=== PATIENT | male | born 1955 | race Caucasian/White ===

== ENCOUNTER 2018-03-18 15:37 | Emergency (ER) | payer MEDICARE ==
[~2018-03-18] VITALS: Ht 162.6 cm; Wt 59.8 kg
[~2018-03-18 15:37] MED LIST: AMLO5TAB16 PO; ATOR-2 PO; CHOL400T32 PO; CLON-527 PO; CLON-529 PO; FAMO-128 PO; IMI20NS NS; LACT10SO PO; LYR25C PO; MECL12.5 PO; NORT25CA5 PO; ONDA4TAB6 PO; PHE12.5T PO; RAME8TAB15 PO
[2018-03-18] MEDS ORDERED: HYDROcodone/acetaminophen 10/325mg tab PO ONE (16:50)
[2018-03-18] MEDS ORDERED: AMOX-580 PO (17:43)
[2018-03-18] MEDS ORDERED: MORP-64 PO (17:43)
[2018-03-18] MEDS ORDERED: morphine 4 MG/ML inj SYRINge IM ONE (17:45)
[2018-03-18] MEDS ORDERED: CIPR-259 PO (18:02)
[2018-03-18 18:11] VITALS: BP 125/89
== END 2018-03-18 18:12 | disposition home or self-care (01) ==
LOC: ER 15:37
DX: T85.79XA Infection and inflammatory reaction due to other internal prosthetic devices, implants and grafts, initial encounter (principal); H92.01 Otalgia, right ear; I10 Essential (primary) hypertension; J44.9 Chronic obstructive pulmonary disease, unspecified; G89.29 Other chronic pain; F12.90 Cannabis use, unspecified, uncomplicated; Z88.6 Allergy status to analgesic agent; Z88.8 Allergy status to other drugs, medicaments and biological substances; Z79.2 Long term (current) use of antibiotics; Z79.899 Other long term (current) drug therapy
CPT/HCPCS: 96372; 99284; J2270

== ENCOUNTER 2018-03-26 20:41 | Emergency (ER) | payer MEDICARE ==
[~2018-03-26] VITALS: Ht 162.6 cm; Wt 62.0 kg
[~2018-03-26 20:41] MED LIST changes: +CIPR-259 PO
[2018-03-26 20:54] VITALS: BP 105/79
[2018-03-27] MEDS ORDERED: MORP15TA PO (00:02)
== END 2018-03-27 00:36 | disposition home or self-care (01) ==
LOC: ER 20:42
DX: R51 Headache (principal); I10 Essential (primary) hypertension; J44.9 Chronic obstructive pulmonary disease, unspecified; G89.29 Other chronic pain; F12.90 Cannabis use, unspecified, uncomplicated; Z88.6 Allergy status to analgesic agent; Z88.8 Allergy status to other drugs, medicaments and biological substances; Z79.899 Other long term (current) drug therapy; Z98.890 Other specified postprocedural states
CPT/HCPCS: 99283

== ENCOUNTER 2018-10-19 06:19 | Emergency (ER) | payer MEDICARE ==
[~2018-10-19 06:19] MED LIST changes: -CIPR-259 PO
--- NOTE | 2018-10-19 06:25 | NUR ---
PT CHECKED INTO ER ADMITTING AT 0619 WITH C/O FALL RIB PAIN, WHILE CONTROL ANALYST WAS RECEIVING CHANGE OF SHIFT REPORT. HOME ENERGY RATER INFORMED RN THAT PT WAS STILL WAITING FOR INTAKE AND REQUESTED THAT SHE LET PT KNOW THAT THE RN WOULD BE WITH HIM SHORTLY, AT WHICH TIME IT WAS ANNOUNCED THAT THE PT HAD LEFT AND SAID HE WAS GOING TO GO TO [facility]. SUPERVISOR DATA PROCESSING NOTIFIED, NO FURTHER ACTION WAS REQUESTED BY .
--- NOTE | 2018-10-19 06:25 | NUR ---
Olman perez in EDM - 10/19/18 at 0655 by SHELBIE PT CHECKED INTO ER ADMITTING AT
== END 2018-10-19 06:30 | disposition left against medical advice (07) ==
LOC: ER 06:20
DX: R07.81 Pleurodynia (principal); Z53.21 Procedure and treatment not carried out due to patient leaving prior to being seen by health care provider; W19.XXXA Unspecified fall, initial encounter; Y93.89 Activity, other specified; Y92.89 Other specified places as the place of occurrence of the external cause; Y99.9 Unspecified external cause status

== ENCOUNTER 2018-10-22 21:17 | Emergency (ER) | payer MEDICARE ==
[~2018-10-22] VITALS: Ht 162.6 cm; Wt 67.3 kg
[2018-10-22 21:36] VITALS: BP 140/98
--- NOTE | 2018-10-22 22:36 | NUR ---
PT FELL OUT OF BED AND HIT RIGHT SIDE OF HIS BACK ON GARBAGE CAN 3 DAYS AGO. PT WAS SEEN AT [facility]
[2018-10-22] MEDS ORDERED: LIDOcaine 5% patch TP STA (23:40)
--- NOTE | 2018-10-23 | NUR ---
PT HARD TO AROUSE AT TIMES. SLEEPING ON/OFF.
--- NOTE | 2018-10-23 00:01 | NUR ---
LIDODERM PATCH APPLIED TO RIGHT LOWER BACK
== END 2018-10-23 00:01 | disposition home or self-care (01) ==
LOC: ER 21:18
DX: S30.1XXA Contusion of abdominal wall, initial encounter (principal); R10.9 Unspecified abdominal pain; I10 Essential (primary) hypertension; M54.5 Low back pain; G89.29 Other chronic pain; F12.10 Cannabis abuse, uncomplicated; M25.559 Pain in unspecified hip; J44.9 Chronic obstructive pulmonary disease, unspecified; Z88.6 Allergy status to analgesic agent; Z79.899 Other long term (current) drug therapy; Z88.8 Allergy status to other drugs, medicaments and biological substances; W06.XXXA Fall from bed, initial encounter; Y93.89 Activity, other specified; Y92.89 Other specified places as the place of occurrence of the external cause; Y99.8 Other external cause status
CPT/HCPCS: 99284

== ENCOUNTER 2021-10-10 15:17 | Emergency (ER) | payer MEDICARE ==
[~2021-10-10] VITALS: Ht 162.6 cm; Wt 70.5 kg
[~2021-10-10 15:17] MED LIST changes: +ALBU1.256 NEB; +AMLO-708 PO; -AMLO5TAB16 PO; +ASPI-12 PO; -ATOR-2 PO; +BACL20TA PO; +CALC-336 PO; +CARV3.122 PO; -CLON-527 PO; -CLON-529 PO; -FAMO-128 PO; +FLO0.4C PO; +HYDR-3686 PO; -LACT10SO PO; +LOSA100T57 PO; -LYR25C PO; -MECL12.5 PO; -NORT25CA5 PO; +OMEP20CA16 PO; -ONDA4TAB6 PO; +OXYC10TA47 PO; -PHE12.5T PO; -RAME8TAB15 PO
[2021-10-10] MEDS ORDERED: orphenadrine citrate 60mg/2ml inj. IM ONE (16:05)
[2021-10-10] MEDS ORDERED: metoclopramide 5 mg/ml inj IV ONE (16:05)
[2021-10-10] MEDS ORDERED: aspirin 325mg tablet PO ONE (16:05)
[2021-10-10] MEDS ORDERED: PROC-8 PO (16:28)
[2021-10-10 16:31] VITALS: BP 133/94
[2021-10-10] MEDS ORDERED: LORazepam 2 mg/ml vial IV ONE (16:40)
[2021-10-10] MEDS ORDERED: oxyCODONE IR 5mg (immed. release) tablet PO ONE (16:45)
== END 2021-10-10 17:32 | disposition home or self-care (01) ==
LOC: ER 15:17
DX: R51.9 Headache, unspecified (principal); M54.2 Cervicalgia; R11.0 Nausea; I10 Essential (primary) hypertension; J44.9 Chronic obstructive pulmonary disease, unspecified; R25.2 Cramp and spasm; G89.29 Other chronic pain; F12.90 Cannabis use, unspecified, uncomplicated; Z98.890 Other specified postprocedural states; Z88.8 Allergy status to other drugs, medicaments and biological substances; Z79.899 Other long term (current) drug therapy; Z79.82 Long term (current) use of aspirin
CPT/HCPCS: 96372; 96374; 99284; J2360; J2765

== ENCOUNTER 2022-01-13 21:08 | Emergency (ER) | payer MEDICARE ==
[~2022-01-13] VITALS: Ht 162.6 cm; Wt 68.2 kg
[~2022-01-13 21:08] MED LIST changes: +PROC-8 PO
[2022-01-13 22:25] LABS: BASOPHILS # (AUTO) 0.1 X10'3 (0-0.2); BASOPHILS % (AUTO) 0.7 % (0-1); EOSINOPHILS # (AUTO) 0.6 X10'3 (0-0.9); EOSINOPHILS % (AUTO) 4.8 % (0-6); HEMATOCRIT 44.4 % (42.0-52.0); HEMOGLOBIN 14.6 g/dl (14.0-17.9); LYMPHOCYTES # (AUTO) 2.3 X10'3 (1.1-4.8); LYMPHOCYTES % (AUTO) 20.1 % (21-51); MEAN CORPUSCULAR HEMOGLOBIN 28.4 PG (27.0-31.0); MEAN CORPUSCULAR HGB CONC 32.8 g/dL (33.0-36.5); MEAN CORPUSCULAR VOLUME 86.5 FL (78-98); MEAN PLATELET VOLUME 8.1 FL (7.4-10.4); MONOCYTES % (AUTO) 8.8 % (2-12); NEUTROPHILS # (AUTO) 7.5 X10'3 (1.8-7.7); NEUTROPHILS % (AUTO) 65.6 % (42-75); PLATELET COUNT 530 X10'3 (140-440); RED BLOOD COUNT 5.13 X10'6 (4.70-6.10); RED CELL DISTRIBUTION WIDTH 15.5 % (11.5-14.5); WHITE BLOOD COUNT 11.5 X10'3 (4.5-11.0)
[2022-01-13 22:42] LABS: ALANINE AMINOTRANSFERASE 17 U/L (12-78); ALBUMIN 3.8 G/DL (3.4-5.0); ALKALINE PHOSPHATASE 51 IU/L (46-116); ANION GAP 12 (8-16); ASPARTATE AMINO TRANSFERASE 22 U/L (10-37); BILIRUBIN,TOTAL 0.3 MG/DL (0.1-1.0); BLOOD UREA NITROGEN 15 MG/DL (7-18); BUN/CREATININE RATIO 15.2 (5.4-32.0); CALCIUM 8.7 MG/DL (8.5-10.1); CHLORIDE 101 MMOL/L (99-107); CREATININE 0.99 MG/DL (0.60-1.10); GLUCOSE 132 MG/DL (70-104); POTASSIUM 3.6 MMOL/L (3.5-5.1); SODIUM 135 MMOL/L (135-145); TOTAL CARBON DIOXIDE 22.3 MMOL/L (24-32); TOTAL PROTEIN 7.7 G/DL (6.4-8.2); eGFR 76 ML/MIN
[2022-01-14] MEDS ORDERED: PRE5T (02:09)
[2022-01-14] MEDS ORDERED: DOXE10CA3 PO (02:09)
[2022-01-14] MEDS ORDERED: FURO40TA4 PO (02:09)
[2022-01-14] MEDS ORDERED: lactulose 20gm/30ml cup PO ONE (02:10)
[2022-01-14] MEDS ORDERED: magnesium hydroxide 30ml (MOM) UD suspension PO ONE (02:10)
[2022-01-14] MEDS ORDERED: ketorolac trometh. 30mg/ml inj. IM ONE (02:20)
[2022-01-14 02:31] VITALS: BP 145/87
== END 2022-01-14 02:35 | disposition home or self-care (01) ==
LOC: ER 21:09
DX: I10 Essential (primary) hypertension (principal); K59.00 Constipation, unspecified; J44.9 Chronic obstructive pulmonary disease, unspecified; G89.29 Other chronic pain; M54.50 Low back pain, unspecified; F12.90 Cannabis use, unspecified, uncomplicated; Z88.6 Allergy status to analgesic agent; Z88.8 Allergy status to other drugs, medicaments and biological substances
CPT/HCPCS: 36415; 71045; 80053; 83880; 84484; 85025; 93005; 96372; 99285; J1885

== ENCOUNTER 2022-01-15 06:45 | Emergency (ER) | payer MEDICARE ==
[~2022-01-15] VITALS: Ht 162.6 cm; Wt 68.1 kg
[~2022-01-15 06:45] MED LIST changes: -AMLO-708 PO; -CALC-336 PO; -CHOL400T32 PO; +DOXE10CA3 PO; +FURO40TA4 PO; -IMI20NS NS; +PRE5T; -PROC-8 PO
[2022-01-15 06:47] VITALS: BP 140/90
--- NOTE | 2022-01-15 08:10 | NUR ---
Spoke with patient upon patients request. Patient expressed frustration and agitation regarding the way that staff had assisted him off of the floor. Robbie EMT and Dulce from registration assisted patient off the the floor back into the wheelchair. I asked patient if he was ok and what he was feeling when he fell out of the wheelchair. Patient skirted by the question, never wanting to answer the question. I even pulled down my mask to help with read my lips and tried writing down on paper. Patient has no visible sign of injury and is not complaining of any pain to staff. Patient does state that the way staff had lifted him off of the ground they had ripped of his cochlear device. I told patient that I would look into the incident on the cameras and see what happened and get back to him.
--- NOTE | 2022-01-15 08:40 | NUR ---
Went to the security office to speak with security staff and review video of the lobby during that time frame. Patient had leaned forward onto an adjacent chair with right forearm. Then lowered himself to the ground, laying on his left side, pulled his blanket up to his shoulders and nestling his hands under the left side of the head. Patient was then asked to sit up in chair and told that he can not lay on the ground. He was assisted gently back into his chair, from the video perspective no force was used to assist patient and the device was unable to be visualized via camera. Patient then was observed via camera pulling blanket to shoulders in chair and minutes later reaching into pocket. However, unable to visualize anything in patients hand via video. Patient then got out of the wheelchair and layed down across three chairs. When this happened security came out to let patient know that he can not lay down in the ER lobby. Patient did not have anything attached to shirt at this time. I did speak with gluing crew leader, Dee ROQUE, regarding this incident and she stated that she did notice that there was a clip and a small black circular device attached to the neckline of the shirt at which also had some small lights on it. Staff did search the lobby for device that patient states fell off at the time staff had assisted him to the wheelchair. EVS was asked if they had found device, nothing was swept from the floor per Jenniffer.
--- NOTE | 2022-01-15 08:43 | NUR ---
I WAS ASKED TO COME OUT TO THE LOBBY CAUSE PT WAS ON THE GROUND AND I TOLD HIM HE NEEDED TO GET OFF THE GROUND BECAUSE WE HAVE A LOT OF FOOT TRAFFIC THROUGH THERE AND IT WAS DIRTY. PUT THEN ROLLED TO HIS SIDE AND I ASSISETED HIM INTO A SITTING POSTION THEN TO A STANDING POSTION AND FINALLY INTO THE CHAIR. PT WAS SITTING ON THE EDGE OF THE CHAIR SO I SCOOTED HIM BACK INTO THE CHAIR. PT IS NOW CLAMING THAT I MAN HANDLED HIM AND THREW HIM INTO THE CHAIR. WHICH ON CAMERA IS NOT THE CASE.
--- NOTE | 2022-01-15 09:59 | NUR ---
Patient observed in lobby with . has mask over mouth and nose. is communicating with patient without pulling mask down to read her lips. This was observed by myself, registration clerks Brandi and Margarita, Security namely Hannah. However prior to this patient continue to state to me that he can't hear what I'm saying. I would try to help the situation by pulling my mask down and also writing things down, however, patient was not cooperative with questioning prior to 's arrival. Hannah had spoken with and patient, was asking in an accusatory manner, well who's going to pay for it. Mean while all staff and are wearing a mask over mouth and nose, patient is able to hear and respond to questioning and adding to conversation.
[2022-01-15] MEDS ORDERED: dexamethasone sod phosphate 10mg/ml inj IV STA (10:43)
[2022-01-15] MEDS ORDERED: diazepam inj 5 MG/ML inj. IV ONE (10:45)
[2022-01-15] MEDS ORDERED: proCHLORperazine 10 MG/2 ml inj IV ONE (10:45)
[2022-01-15] MEDS ORDERED: diphenhydrAMINE 50 mg/ml inj IV ONE (10:45)
[2022-01-15] MEDS ORDERED: SUMAtriptan succ. 6 MG/0.5ml vial SQ ONE (12:35)
== END 2022-01-15 13:34 | disposition home or self-care (01) ==
LOC: ER 06:45
DX: G43.909 Migraine, unspecified, not intractable, without status migrainosus (principal); I10 Essential (primary) hypertension; J44.9 Chronic obstructive pulmonary disease, unspecified; G89.29 Other chronic pain; M54.50 Low back pain, unspecified; F12.90 Cannabis use, unspecified, uncomplicated; Z88.6 Allergy status to analgesic agent; Z88.8 Allergy status to other drugs, medicaments and biological substances
CPT/HCPCS: 96372; 96374; 96375; 99284; J0780; J1100; J1200; J3030; J3360; A4358; A5200

== ENCOUNTER → 2024-04-16 | Outpatient (CLI) | payer MEDICARE ==
[~2024-04-16] MED LIST changes: +APRE30TA5 PO; -ASPI-12 PO; -DOXE10CA3 PO; +ESZO1TAB13 PO; -FLO0.4C PO; -FURO40TA4 PO; -HYDR-3686 PO; -LOSA100T57 PO; +LOSA100T58 PO; -OMEP20CA16 PO
== END | disposition home or self-care (01) ==
LOC: RAD 10:33
PROVIDERS: ATTEND Physician Assistant
DX: R13.10 Dysphagia, unspecified (principal); M48.02 Spinal stenosis, cervical region; Z79.52 Long term (current) use of systemic steroids; Z79.899 Other long term (current) drug therapy
CPT/HCPCS: 74230

== ENCOUNTER 2024-05-17 09:46 | Day surgery (SDC) | payer MEDICARE ==
[~2024-05-17] VITALS: Ht 162.6 cm; Wt 50.0 kg
[~2024-05-17 09:46] MED LIST changes: +ALBU8HFA INH; +AMLO5TAB16 PO; -PRE5T; +PRE5T PO
[2024-05-17 11:15] VITALS: BP 145/83; PULSE 52; RESP 16
[2024-05-17] MEDS ORDERED: propofol inj 20 ML IV ONE (11:49)
[2024-05-17 12:15] VITALS: BP 100/63; PULSE 61; RESP 15; O2SAT 97
[2024-05-17 12:25] VITALS: BP 104/68; PULSE 53; RESP 14; O2SAT 96
[2024-05-17 12:35] VITALS: BP 123/85; PULSE 52; RESP 16; O2SAT 98
[2024-05-17 12:45] VITALS: BP 122/81; PULSE 50; RESP 14; O2SAT 97
== END 2024-05-17 13:00 | disposition home or self-care (01) ==
LOC: GI LAB 09:46
PROVIDERS: ATTEND Internal Medicine Gastroenterology
DX: R13.10 Dysphagia, unspecified (principal); K29.70 Gastritis, unspecified, without bleeding; I10 Essential (primary) hypertension; J44.9 Chronic obstructive pulmonary disease, unspecified; Z87.891 Personal history of nicotine dependence; Z98.890 Other specified postprocedural states; Z88.0 Allergy status to penicillin; Z88.6 Allergy status to analgesic agent; Z88.8 Allergy status to other drugs, medicaments and biological substances
CPT/HCPCS: 43239; J2704; J7030; Z7512